=== PATIENT | female | born 2005 | race Caucasian/White ===

== ENCOUNTER 2024-03-01 00:28 | Inpatient (IN) | payer MEDICAID, SELFPAY ==
[2024-02-29 23:45] VITALS: BP 131/82; PULSE 96; RESP 16
[2024-02-29 23:46] VITALS: RESP 14; TEMP 36.4
[2024-02-29 23:49] VITALS: BMI 34.7
[2024-03-01] VITALS (67 sets, daily range): BP systolic 97–138; BP diastolic 52–83; PULSE 71–141; RESP 14–20; TEMP 36.2–37.1; O2SAT 82–100
[2024-03-01 00:18] LABS: ROM Internal Control Test YES-OK TO RESULT pt. (Internal QC)
[2024-03-01 00:19] LABS: ROM Patient Test POSITIVE (Negative); Record Kit Lot#, ROM+ K1866
[2024-03-01] MEDS: Lactated Ringers 1,000 ML 50 ML IV (00:45)
[2024-03-01 01:10] LABS: Absolute Lymphocyte Count 1.69 X10^3/uL (0.83-4.51); Absolute Neutrophil Count 10.7 X10^3/uL (2.0-7.7); Basophil# 0.03 X10^3/uL; Basophil% 0.2 % (0-1); Eosinophils% 0.7 % (0-5); Hematocrit 33.7 % (37-47); Hemoglobin 11.1 g/dL (12.0-15.0); Lymphocyte # 1.69 X10^3/ul (0.83-4.51); Lymphocyte % 12.2 % (19-41); Mean Corp Hgb Conc 32.9 g/dL (32-36); Mean Corpuscular Hgb 27.7 pg (27.0-32.0); Mean Platelet Vol. 11.8 fl (6.2-12.0); Monocyte# 1.02 X10^3/uL; Monocyte% 7.4 % (0-10); NRBC Flagged by Analyzer 0 % (0-5); Neutrophil # 10.71 X10^3/uL (2.7-7.7); Neutrophil % 77.6 % (47-70); Platelet Count 203 K/mm3 (150-450); RBC Distribution Width CV 12.9 % (11.6-14.6); RBC Distribution Width SD 39.1 fl (35.1-43.9); Red Blood Count 4.01 M/mm3 (4.2-5.4); White Blood Count 13.8 K/mm3 (4.4-11.0)
[2024-03-01 01:55] LABS: Syphilis Antibodies Non-reactive
[2024-03-01] MEDS: Vancomycin HCl 1,750 MG in 0.9% Normal Saline (500mL Bag) 500 ML 250 MG IV (02:00)
[2024-03-01] MEDS: fentaNYL 100 MCG/2 ML Ampul IV (03:36)
[2024-03-01] MEDS: 0.9% Saline Lock 10 ML Syringe IV (03:37)
--- NOTE | 2024-03-01 04:21 | PCM.RX.CS ---
Consult Antibiotic Management Pharmacy has been consulted to manage selected antibiotic: Vancomycin Type of Intervention Type of Consult: New start Dosing Weight Weight used for dosin.7 kg Pharmacy Plan for Drug Dosing Pharmacy Plan for Drug Dosing: Pharmacy Service will continue to monitor and adjust dosing as required. 1750MG Q8H TROUG PRIOR TO 4TH DOSE Follow-Up Labs Follow-Up Labs: Trough: Vancomycin Date/Time Labs Ordered Labs to be done on [date and time ordered]: 03/02 @ 6847
[2024-03-01] MEDS: LACTATED RINGERS 500 ML 999 ML IV (04:50)
--- NOTE | 2024-03-01 05:47 | HP.PCM.OB_ITS ---
HPI - General General Date of Admission: 03/01/24 HPI Narrative JH MAURICE, is a 18 F who presents at 39 weeks. SROM. Maternal Data Information MONI Calculator Estimated Delivery Date Method Current WG Current Estimate 03/08/24 Manual 39w 0d PFSH PFS Medical History (Updated 03/01/24 @ 05:53 by Keila Sotelo CNM) Family history of hearing loss at age younger than 7 years Chlamydia infection affecting Home Medications ?Medication ?Instructions ?Recorded ?Last Taken ?Type Flonase Nasal [place] DAILY 03/10/16 Unknown History loratadine 10 mg tablet (Allergy 10 mg PO DAILY 03/10/16 Unknown History Relief (loratadine)) Allergy/AdvReac Type Severity Reaction Status Date / Time penicillin G Allergy Severe Anaphylaxis Verified 02/29/24 23:51 amoxicillin Allergy Unknown Hives Verified 02/29/24 23:51 famotidine Allergy Unknown Hives Verified 02/29/24 23:51 Surgical History (Updated 03/01/24 @ 00:14 by Angela Swenson) History of tonsillectomy and adenoidectomy Social History (System 08/14/21 @ 11:02 by Sarah Nobles) Smoking Status: Former smoker History Elective abortions Hx Para 0 Spontaneous abortions Hx # Term Pregnancies Ectopic pregnancies Hx # Pregnancies Multiple births # of living children NST FHR Rate Baby A Baseline: 130, no accels or decels noted. FHR Rate Baby B Baseline: 130 ROS Constitutional Constitutional: Reports systems reviewed and no addt'l complaints, except as documented; Denies headache(s) Eyes Eyes: Denies acute decrease in peripheral vision, blurry vision or change in vision ENT HEENT: Reports systems reviewed and no addt'l complaints, except as documented Cardiovascular Cardiovascular: Denies chest pain or dizziness Respiratory/Chest Respiratory/Chest: Denies cough, dyspnea, dyspnea on exertion, shortness of breath at rest or shortness of breath with exertion Gastrointestinal Gastrointestinal: Denies abdominal pain, diarrhea, nausea or vomiting Genitourinary Genitourinary: Denies abdominal discomfort Musculoskeletal Musculoskeletal: Denies limited range of motion Integumentary Integumentary: Reports systems reviewed and no addt'l complaints, except as documented Neurologic Neurologic: Reports systems reviewed and no addt'l complaints, except as documented Psychiatric Psychiatric: Reports systems reviewed and no addt'l complaints, except as documented Endocrine Endocrinology: Reports systems reviewed and no addt'l complaints, except as documented Hematologic/Lymphatic Hematologic/Lymphatic: Reports systems reviewed and no addt'l complaints, except as documented Allergic/Immunologic Allergic/Immunologic: Reports systems reviewed and no addt'l complaints, except as documented Vital Signs Vital Signs Vital Signs: 02/29/24 23:45 02/29/24 23:45 02/29/24 23:45 Temperature Temperature Source Pulse Rate 96 Respiratory Rate 16 Blood Pressure 131/82 H BP Systolic 131 BP Diastolic 82 Pulse Ox 02/29/24 23:46 02/29/24 23:46 02/29/24 23:46 Temperature 97.5 F L Temperature Source Temporal Pulse Rate Respiratory Rate 14 Blood Pressure BP Systolic BP Diastolic Pulse Ox 03/01/24 01:03 03/01/24 01:03 03/01/24 01:03 Temperature 97.4 F L Temperature Source Temporal Pulse Rate Respiratory Rate 14 Blood Pressure BP Systolic BP Diastolic Pulse Ox 03/01/24 01:06 03/01/24 01:06 03/01/24 01:06 Temperature Temperature Source Pulse Rate 92 Respiratory Rate Blood Pressure 115/60 BP Systolic 115 BP Diastolic 60 Pulse Ox 99 03/01/24 01:40 03/01/24 02:14 03/01/24 02:14 Temperature Temperature Source Pulse Rate 86 76 Respiratory Rate 16 Blood Pressure BP Systolic BP Diastolic Pulse Ox 03/01/24 02:14 03/01/24 02:16 03/01/24 02:16 Temperature 97.1 F L Temperature Source Pulse Rate 89 Respiratory Rate Blood Pressure 125/79 H BP Systolic 125 BP Diastolic 79 Pulse Ox 03/01/24 02:47 03/01/24 03:42 03/01/24 03:42 Temperature Temperature Source Pulse Rate 82 89 Respiratory Rate Blood Pressure BP Systolic BP Diastolic Pulse Ox 96 03/01/24 03:45 03/01/24 04:12 03/01/24 04:20 Temperature Temperature Source Temporal Pulse Rate 90 86 Respiratory Rate Blood Pressure BP Systolic BP Diastolic Pulse Ox 03/01/24 04:20 03/01/24 04:20 03/01/24 04:20 Temperature Temperature Source Pulse Rate 86 Respiratory Rate 16 Blood Pressure BP Systolic BP Diastolic Pulse Ox 98 03/01/24 04:20 03/01/24 04:21 03/01/24 04:21 Temperature 97.1 F L Temperature Source Pulse Rate 96 Respiratory Rate Blood Pressure 113/55 L BP Systolic 113 BP Diastolic 55 Pulse Ox 03/01/24 04:54 03/01/24 04:54 03/01/24 04:54 Temperature Temperature Source Pulse Rate 92 100 Respiratory Rate Blood Pressure BP Systolic BP Diastolic Pulse Ox 95 03/01/24 05:43 03/01/24 05:43 03/01/24 05:43 Temperature Temperature Source Pulse Rate 84 Respiratory Rate Blood Pressure 138/69 H BP Systolic 138 BP Diastolic 69 Pulse Ox 98 03/01/24 05:43 Temperature Temperature Source Pulse Rate 83 Respiratory Rate Blood Pressure BP Systolic BP Diastolic Pulse Ox Weight Weight: 202 lb 2 oz Body Mass Index (BMI) 34.7 Physical Exam Const alert and oriented x3 General Appearance: cooperative Orientation / Consciousness: awake, oriented to person, oriented to place and oriented to time Exam Limitations: no limitations HEENT normocephalic Head and Scalp: normal to inspection, normocephalic and atraumatic Face and Sinus: normal facial exam Eyes General Eye: normal appearance of both eyes Neck full ROM Chest Chest: symmetrical chest wall rise Resp normal respiratory effort and normal air movement Auscultation: clear to auscultation bilaterally Cardio regular rate, regular rhythm, S1 normal heart sound, S2 normal heart sound, no murmurs, no rub, no gallops and no clicks GI normal to inspection, nondistended, normoactive bowel sounds and non-tender appearance of the vagina normal Bladder / Kidney Exam: no CVA tenderness Manual OB Exam: estimated gestational size appropriate, presentation cephalic, dilated 9.5 cm, effaced 90% and station +2 Back/Spine normal ROM Extremity normal to inspection and full ROM Skin no rashes or lesions noted Neuro oriented x3, CN's II-XII intact bilaterally and moves all extremities Sensorium / Orientation: awake, alert and oriented to person Motor Exam: clonus absent Deep Tendon Reflexes: Rt Patellar (L4): 2+ and Lt Patellar (L4): 2+ Labs Labs Labs: Blood Type A POSITIVE Antibody Screen NEGATIVE Hct 33.7 % (37-47) L Hgb 11.1 g/dL (12.0-15.0) L Syphilis Total Ab Non-reactive GC/CT positive in first trimester, GC/CT negative 02/11/24 RPR negative A positive HBsAG negative Rubella Immune Hep C negative HIV nonreactive Assessment & Plan (1) Active labor at term: (2) SROM (spontaneous rupture of membranes): (3) Asthma during : (4) Obesity affecting : COMMENT: Pregravid BMI 30 PLAN: Plan 1) Admit to labor and delivery 2) Routine labs 3) GBS positive, PCN allergy, Vancomycin 4) Category 1 and then IA for monitoring. Will transition to Continuous EFM 5) Labored in tub but requesting epidural for pain management 6) collaborative physician. Notified of patient status, above assessment, and plan.
[2024-03-01] MEDS: Oxytocin 10 UNITS/ML Vial IM (06:48)
[2024-03-01] MEDS: Oxytocin 15 Units/NS 250ml 15 UNITS/250 ML IV.SOLN 83 UNITS IV (06:48)
--- NOTE | 2024-03-01 06:55 | EX.PCM.OBRPT ---
Assessment & Plan (1) Vaginal delivery: Maternal Data Information MONI Calculator Estimated Delivery Date Method Current WG Current Estimate 03/08/24 Manual 39w 0d Vaginal Delivery Maternal Presentation Maternal Presentation: Active Labor and Spontaneous Rupture of Membranes Operative Information Date of Procedure: 03/01/24 Pre-Operative Diagnosis: Active Labor at term, SROM Post-Operative Diagnosis: Surgery / Procedure Performed: Spontaneous Vaginal Delivery Type of Anesthesia: Epidural Estimated Blood Loss: 300ml Time of Delivery: 06:45 Findings Description of Procedure: Progressed to complete with urge to push. Epidural for pain management. of viable female infant over intact perineum. APGARS 7,9 respectively. head delivered with body immediately forthcoming. Placed on maternal abdomen, strong cry. Mouth and nares suctioned for secretions. Pitocin started for active 3rd stage management. Cord doubly clamped and cut by FOB after pulsations ceased, delayed cord clamping. Placenta delivered intact via owens, 3 vessel cord intact. Perineum inspected and revealed intact. Fundus firm and hemostasis achieved. EBL 300ml. Mom and baby stable, planning to breastfeed. Family bonding well. notified of delivery. Presentation: Vertex and NICK Amniotic Membrane Rupture Type: Spontaneous Amniotic Fluid Description: Clear Placental Delivery Description: Spontaneous Placenta Disposition: [facility] Cord Vessel Description: 3 Vessels Cord Entanglement: Around neck x 1, loose Nuchal Cord Compression: Without compression A Gender: Female (1 minute): 7 (5 minute): 9 Delayed Cord Clamping: Yes Post Vaginal Delivery Medications Given After Delivery: IV Pitocin and IM Pitocin Episiotomy Description: None Laceration: None Complication Complications: None
[2024-03-01] MEDS: Acetaminophen 500 MG Tablet 1000 MG PO (20:36)
[2024-03-02 00:19] VITALS: BP 98/53; PULSE 84; RESP 16; TEMP 36.4; O2SAT 99
[2024-03-02 04:27] VITALS: BP 109/70; PULSE 85; RESP 16; TEMP 36.2; O2SAT 97
[2024-03-02 07:35] LABS: Absolute Neutrophil Count 7.8 X10^3/uL (2.0-7.7); Basophil# 0.06 X10^3/uL; Basophil% 0.5 % (0-1); Eosinophil# 0.24 X10^3/uL; Eosinophils% 1.9 % (0-5); Hematocrit 33.2 % (37-47); Hemoglobin 10.6 g/dL (12.0-15.0); Lymphocyte % 25.8 % (19-41); Mean Corp Hgb Conc 31.9 g/dL (32-36); Mean Corpuscular Hgb 27.7 pg (27.0-32.0); Mean Corpuscular Volume 86.9 fL (81-99); Mean Platelet Vol. 11.6 fl (6.2-12.0); Monocyte# 0.99 X10^3/uL; NRBC Flagged by Analyzer 0 % (0-5); Neutrophil # 7.84 X10^3/uL (2.7-7.7); Neutrophil % 63.4 % (47-70); Platelet Count 192 K/mm3 (150-450); RBC Distribution Width CV 13.4 % (11.6-14.6); RBC Distribution Width SD 41.6 fl (35.1-43.9); Red Blood Count 3.82 M/mm3 (4.2-5.4); White Blood Count 12.4 K/mm3 (4.4-11.0)
[2024-03-02 08:00] VITALS: BP 107/88; PULSE 78; RESP 16; TEMP 36.5
--- NOTE | 2024-03-02 09:15 | PCM.PN.OB ---
Subjective Subjective Doing well per patient and nursing staff. Ambulating and taking PO without difficulty. Voiding and passing flatus. Pain controlled. , services for assistance. Denies headache, visual changes, chest pain, shortness of breath, leg pain or increased bleeding. Lochia normal. Objective Data Objective Data Vital Signs: Vital Signs Temp Pulse Resp BP Pulse Ox O2 Del Method 97.7 F L 78 16 107/88 H 97 Room Air 03/02/24 08:00 03/02/24 08:00 03/02/24 08:00 03/02/24 08:00 03/02/24 04:27 03/02/24 04:27 Oxygen Delivery Method Room Air Weight: 202 lb 2 oz Body Mass Index (BMI) 34.7 Intake & Output: Intake and Output for Last 24 Hours 02/29/24 03/01/24 03/02/24 23:59 23:59 23:59 Intake Total 1800.00 / 1800.00 Output Total 800 / 800 Balance 1000.00 / 1000.00 Lab / Micro Data 03/02/24 06:50 Labs: Laboratory Results - last 24 hr 03/02/24 06:50: WBC 12.4 H, RBC 3.82 L, Hgb 10.6 L, Hct 33.2 L, MCV 86.9, MCH 27.7, MCHC 31.9 L, RDW Std Deviation 41.6, RDW Coeff of Terri 13.4, Plt Count 192, MPV 11.6, Immature Gran % (Auto) 0.400, Neut % (Auto) 63.4, Lymph % (Auto) 25.8, [place] % (Auto) 8.0, Eos % (Auto) 1.9, Baso % (Auto) 0.5, Absolute Neuts (auto) 7.8 H, Absolute Lymphs (auto) 3.20, Nucleated RBC % 0 ROS Constitutional Constitutional: Reports systems reviewed and no addt'l complaints, except as documented; Denies headache(s) Eyes Eyes: Denies acute decrease in peripheral vision, blurry vision or change in vision ENT HEENT: Reports systems reviewed and no addt'l complaints, except as documented Cardiovascular Cardiovascular: Denies chest pain or dizziness Respiratory/Chest Respiratory/Chest: Denies cough, dyspnea, dyspnea on exertion, shortness of breath at rest or shortness of breath with exertion Gastrointestinal Gastrointestinal: Denies abdominal pain, diarrhea, nausea or vomiting Genitourinary Genitourinary: Denies abdominal discomfort Musculoskeletal Musculoskeletal: Denies limited range of motion Integumentary Integumentary: Reports systems reviewed and no addt'l complaints, except as documented Neurologic Neurologic: Reports systems reviewed and no addt'l complaints, except as documented Psychiatric Psychiatric: Reports systems reviewed and no addt'l complaints, except as documented Endocrine Endocrinology: Reports systems reviewed and no addt'l complaints, except as documented Hematologic/Lymphatic Hematologic/Lymphatic: Reports systems reviewed and no addt'l complaints, except as documented Allergic/Immunologic Allergic/Immunologic: Reports systems reviewed and no addt'l complaints, except as documented Physical Exam Const alert and oriented x3 General Appearance: cooperative Orientation / Consciousness: awake, oriented to person, oriented to place and oriented to time Exam Limitations: no limitations HEENT normocephalic Head and Scalp: normal to inspection, normocephalic and atraumatic Face and Sinus: normal facial exam Eyes General Eye: normal appearance of both eyes Neck full ROM Chest Chest: symmetrical chest wall rise Resp normal respiratory effort and normal air movement Auscultation: clear to auscultation bilaterally Cardio regular rate, regular rhythm, S1 normal heart sound, S2 normal heart sound, no murmurs, no rub, no gallops and no clicks GI normal to inspection, nondistended, normoactive bowel sounds and non-tender appearance of the vagina normal Bladder / Kidney Exam: no CVA tenderness Back/Spine normal ROM Extremity normal to inspection and full ROM Skin no rashes or lesions noted Neuro oriented x3, CN's II-XII intact bilaterally and moves all extremities Sensorium / Orientation: awake, alert and oriented to person Motor Exam: clonus absent Deep Tendon Reflexes: Rt Patellar (L4): 2+ and Lt Patellar (L4): 2+ Assessment & Plan (1) Vaginal delivery: PLAN: Plan 1) Routine PP Care. PPD#[id number] 2) Lactating mother, services for assistance 3) Vitals stable 4) Planning D/C tomorrow
[2024-03-02 14:00] VITALS: BP 106/73; PULSE 84; RESP 16; TEMP 36.6
[2024-03-02 20:02] VITALS: BP 118/68; PULSE 73; RESP 18; TEMP 36.2
[2024-03-03 03:32] VITALS: BP 116/74; PULSE 73; RESP 16
[2024-03-03 08:01] VITALS: BP 125/81; PULSE 82; RESP 16; TEMP 36.6; O2SAT 99
--- NOTE | 2024-03-03 08:49 | PCM.PN.OB ---
Subjective Subjective Doing well. Minimal pain. Lochia light. Breast and bottle feeding. Ambulating and voiding well. Objective Data Objective Data Vital Signs: Vital Signs Temp Pulse Resp BP Pulse Ox O2 Del Method 97.8 F 82 16 125/81 H 99 Room Air 03/03/24 08:01 03/03/24 08:01 03/03/24 08:01 03/03/24 08:01 03/03/24 08:01 03/03/24 08:01 Oxygen Delivery Method Room Air Weight: 91.682 kg Body Mass Index (BMI) 34.7 Intake & Output: Intake and Output for Last 24 Hours 03/01/24 03/02/24 03/03/24 23:59 23:59 23:59 Intake Total 1800.00 / 1800.00 Output Total 800 / 800 Balance 1000.00 / 1000.00 Lab / Micro Data 03/02/24 06:50 Physical Exam Const alert and no apparent distress Narrative: Fundus firm, below umbilicus. Assessment & Plan (1) Vaginal delivery: PLAN: Plan Discharge today
--- NOTE | 2024-03-03 08:53 | DS.PCM_ITS ---
Providers Date of Admission: 03/01/24 Date of Discharge: 03/03/24 Primary Care Physician: Dr. Sinan Mar MD Diagnosis Discharge Diagnosis (1) Vaginal delivery: Status: Acute Code(s): O80 - Encounter for full-term uncomplicated delivery Plan Discharge today Medications at Discharge Home Medications Flonase Nasal [place] DAILY 03/10/16 loratadine 10 mg tablet (Allergy Relief (loratadine)) 10 mg PO DAILY 03/10/16 Hospital Course Operations None Procedures None Summary of Care Provided Minutes Spent on Discharge: 20 Hospital Course: Arrived with SROM. Labored until 9 cm in the tub and then got an epidural. with no laceration. Breast and bottle feeding. Uncomplicated course Physical Exam Const alert and no apparent distress Narrative: Fundus firm, below umbilicus. Weight / BMI Weight Weight: 91.682 kg Body Mass Index (BMI) 34.7 ABG / Lab / Microbiology Data 03/02/24 06:50 D/C Instructions May resume sexual activity in: 6 weeks Please Follow Up With: Kathy Bailey MD When: Follow up with our office in 1-2 and 6 weeks or as needed. [phone] Meaningful Use Info Meaningful Use Meaningful Use Diagnoses (Choose all that apply): None applicable Ischemic Stroke Statin Dosing Therapy Reference: STATIN DOSE THERAPY REFERENCE: * Patients > 75 years receive moderate or high dose statin therapy. * Patients 75 years or YOUNGER should receive HIGH intensity statin dose unless contraindicated. You will be required to document reason for non-treatment if statin daily dose does not meet guidelines. HIGH DOSE STATIN THERAPY DAILY Atorvastatin > than or = to 40 mg Rosuvastatin > than or = to 20 mg Amlodipine + Atorvastatin > than or = to 2.5/40 mg Ezetimibe + Simvastatin 10/80 mg Simvastatin 80mg Discharge Plan Admission Admit Date/Time: 03/01/24 00:28 Attending Provider: Keila Sotelo Primary Care Provider: Sinan Mar Discharge Orders/Prescriptions Prescriptions: Continued loratadine [Allergy Relief (loratadine)] 10 MG tablet 10 mg PO DAILY Flonase Nasal [place] NASAL DAILY Referrals / Follow Up: Sinan Mar MD [Primary Care Provider] - Disposition Disposition (needs filled in before D/C Order can be placed): Home, Self Care
[2024-03-03 11:35] VITALS: RESP 14
--- NOTE | 2024-03-09 10:51 | NURSING ---
Here for chris on Friday from office. Doing well with pumping and feeding. 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 Patient states she has been feeling good and denies any questions or complaints.
== END 2024-03-03 12:00 | disposition home or self-care (01) | DRG 560 ==
LOC: WP 07:18 → WPOUT 11:13 → WP 11:13
PROVIDERS: Admitting Provider Advanced Practice Midwife; PCP Pediatrics; Referring Provider Advanced Practice Midwife; Visit Provider Advanced Practice Midwife
DX: O99.824 Streptococcus B carrier state complicating childbirth (principal); Z37.0 Single live birth; J45.909 Unspecified asthma, uncomplicated; O99.214 Obesity complicating childbirth; O99.52 Diseases of the respiratory system complicating childbirth; O69.81X0 Labor and delivery complicated by cord around neck, without compression, not applicable or unspecified; Z88.0 Allergy status to penicillin; Z3A.39 39 weeks gestation of pregnancy; Z87.891 Personal history of nicotine dependence
CPT/HCPCS: 59025; 59050; 84112; 85025; 86780; 86850; 86900; 86901; 99221; J7040; J7120; A4216; G0378

== ENCOUNTER 2024-12-17 07:09 | Emergency (ER) | payer MEDICAID, SELFPAY ==
[2024-12-17 07:10] VITALS: BP 124/86; PULSE 74; RESP 16; TEMP 36.7; O2SAT 99; BMI 32.5
--- NOTE | 2024-12-17 07:24 | EDS_ITS ---
HPI History of Present Illness Chief Complaint: Chest Other Informant: patient and parent Narrative Narrative: 19-year-old female presenting to the emergency room for chest pain. Patient states for the past week she has had intermittent sharp stabbing pain along the left costochondral border of her chest. She states that she goes to the gym and lifts weights but is not done anything out of the ordinary for her. She notes the pain is only present when she takes a deep breath. It is not present with every breath. She denies any DVT PE risk factors or history. She states she is not currently on medication. She denies any recent illnesses or cough. No shortness of breath. She denies any rashes. No back pain. [facility] Medical History Family history of hearing loss at age younger than 7 years Chlamydia infection affecting Home Medications ?Medication ?Instructions ?Recorded ?Last Taken ?Type Flonase Nasal [place] DAILY 03/10/16 Unknown Histo ry loratadine 10 mg tablet (Allergy 10 mg PO DAILY Unknown History Relief (loratadine)) Allergy/AdvReac Type Severity Reaction Status Date / Time penicillin G Allergy Severe Anaphylaxis Verified 12/17/24 07:12 amoxicillin Allergy Unknown Hives Verified 12/17/24 07:12 famotidine Allergy Unknown Hives Verified 12/17/24 07:12 Surgical History History of tonsillectomy and adenoidectomy Social History Smoking Status: Former smoker ROS ROS ED Constitutional Constitutional ED: Denies chills, fever(s) or weight loss Eyes Eyes: Denies change in vision or diplopia ENT ENT ED: Denies ear pain, rhinorrhea or sore throat Cardiovascular Cardiovascular: Reports chest pain; Denies orthopnea, palpitations or racing heartbeat Respiratory/Chest Respiratory/Chest: Denies cough, dyspnea or orthopnea Gastrointestinal Gastrointestinal: Denies abdominal pain, diarrhea, nausea or vomiting Genitourinary Genitourinary ED: Denies dysuria, hematuria or urinary frequency Musculoskeletal Musculoskeletal: Denies arthralgias or myalgias Integumentary Denies abscess or rash Neurologic Neurologic: Denies headache(s) or weakness Psychiatric Psychiatric: Denies anxiety, depression, suicidal ideation or suicidal thoughts Endocrine Endocrinology: Denies polydipsia, polyphagia or polyuria Allergic/Immunologic Allergic/Immunologic ED: Denies mouth swelling, tongue swelling or urticaria EXAM Physical Exam Const Vital Signs: 12/17/24 07:10 Temperature 98.1 F Temperature Source Temporal Pulse Rate 74 Respiratory Rate 16 Blood Pressure 124/86 H Blood Pressure Mean 98 Pulse Ox 99 Oxygen Delivery Method Room Air Positive well nourished and well developed General Appearance ED: well developed and NAD HEENT Reports normocephalic, head/scalp atraumatic and moist mucous membranes Eyes PERRL and EOMs intact bilaterally Neck no lymphadenopathy, supple and no JVD Chest Wall Chest Narrative: Mild tenderness to palpation along the left costochondral border. Resp normal respiratory effort and clear to auscultation bilaterally Cardio regular rate, regular rhythm and no murmurs GI normal to inspection, nondistended, normoactive bowel sounds and non-tender Palpation: soft Back/Spine no CVA tenderness and normal ROM Extremity normal to inspection General Extremety ED: Negative for edema General Extremity: Negative for edema Neuro oriented x3 and CN's II-XII intact bilaterally Sensorium / Orientation: alert Motor Exam: strength 5/5 throughout Psych mental status grossly normal Mood & Affect: Negative for depressed or tearful Skin no rashes or lesions noted and no wounds MDM MDM MDM Narrative Medical decision making narrative: Differential diagnosis includes but not limited to pleurisy the pleural effusion costochondritis pulmonary embolism chest wall strain costochondral separation pericarditis cardiac dysrhythmia My independent interpretation of the chest x-ray is no acute process. EKG is in normal sinus rhythm with no concerning features. D-dimer is in the normal rang e. Clinically I think this is more of a costochondritis. Would recommend anti- inflammatories and rest follow-up primary care if not improving return if worsening History & Record Review Discussion w/independent historian: Patient and Family Lab Data Attestation: I reviewed the patient's lab results. Labs: Laboratory Results - last 24 hr 12/17/24 07:45 D-Dimer Quant (PE/DVT) 0.27 Radiography Diagnostic Testing: Clinical Impression(s) from Imaging Studies Chest X-Ray 12/17/24 07:30 IMPRESSION: Negative examination. Reading Location: [facility] EKG Initial EKG: Attestation: I personally reviewed and interpreted this EKG as follows: Comments: Normal sinus rhythm ventricular rate of 64 bpm Discharge Plan Triage Chief Complaint: Chest Other ED Provider: Jason Cordova Dx/Rx/DC Orders Clinical Impression: Chest pain, Acute costochondritis Instructions: ED Chest Wall Pain, Costochondritis Prescriptions: No Action loratadine [Allergy Relief (loratadine)] 10 MG tablet 10 mg PO DAILY Flonase Nasal [place] NASAL DAILY Primary Care Provider: Care Physician,No Primary Referrals: Sinan Mar MD [Non-Staff] - Activity Restrictions/Additional Instructions: I would recommend 600 mg of ibuprofen every 8 hours for at least 5 days. I would avoid exercises that may stretch the chest wall. Monitor for changes return if worsening or concerns follow-up with primary care if not improving Print Language: Occitan Disposition Disposition: Home, Self Care
--- NOTE | 2024-12-17 07:30 | RAD_ITS ---
PROCEDURE: CHEST PA AND LATERAL REASON FOR EXAM: Chest pain. TECHNIQUE: Frontal and lateral views of the chest. COMPARISON: None. FINDINGS: EKG electrodes are seen. The lungs are clear. The bones are unremarkable. RAD/Chest PA and Lateral IMPRESSION: Negative examination. Reading Location: [id number]
[2024-12-17] MEDS: Ketorolac 30 MG/ML Syringe IV (07:44)
[2024-12-17 08:30] LABS: D-Dimer Quantitative (DVT/PE) 0.27 FEU/ug/m (0.27-0.49)
[2024-12-17 09:13] VITALS: BP 99/57; PULSE 72; RESP 16; TEMP 36.6; O2SAT 99
== END 2024-12-17 09:17 | disposition home or self-care (01) ==
PROVIDERS: Emergency Provider Emergency Medicine; Visit Provider Emergency Medicine
DX: M94.0 Chondrocostal junction syndrome [Tietze] (principal); Z87.891 Personal history of nicotine dependence
CPT/HCPCS: 71046; 85379; 93005; 96374; 99282; A4216

== ENCOUNTER → 2025-08-15 | Outpatient (CLI) | payer MEDICAID, SELFPAY | END | disposition home or self-care (01) | LOC: LABSPEC 11:45 | PROVIDERS: Visit Provider Physician Assistant | DX: R22.43 Localized swelling, mass and lump, lower limb, bilateral (principal) | CPT/HCPCS: 87086 ==